=== PATIENT | female | born 1995 | race Caucasian/White ===

== ENCOUNTER 2017-05-15 14:06 | Inpatient (IN) ==
[2017-05-15] MEDS ORDERED: NS 1,000 ML IV ONE ×2 (14:30→19:13)
[2017-05-15] MEDS ORDERED: MOTRIN PO ONE (14:31)
[2017-05-15] MEDS ORDERED: MOTRIN ONE (14:32)
[2017-05-15 14:44] LABS: BASO% 0.2 % (0.0-0.8); EOS# 0.14 X1000 (0.0-0.7); HEMATOCRIT 42.3 % (37.0-47.0); HEMOGLOBIN 14.4 g/dL (12.0-16.0); IMM GRAN# 0.02 X1000 (0.0-0.04); IMM GRAN% 0.1 % (0.0-0.5); LYMPH# 1.15 X1000 (1.2-3.4); LYMPH% 7.9 % (20.5-51.1); MANUAL DIFF NEEDED? NO; MCH 28.9 PG (27-31); MCV 84.9 FL (81-99); MONO# 0.77 X1000 (0.11-0.59); MONO% 5.3 % (1.7-9.3); MPV 9.3 FL (7.4-10.4); NEUT% 85.5 % (42.2-75.2); PLT 331 X1000 (130-400); RBC 4.98 XMIL (4.2-5.4)
[2017-05-15 14:46] LABS: URINE CULTURE PL NEEDED? NO
[2017-05-15 14:57] LABS: AMYLASE 229 U/L (20-200)
[2017-05-15 14:59] LABS: AGAP 13; ALBUMIN 3.9 g/dL (3.5-5.0); ALKALINE PHOSPHATASE 77 U/L (32-104); BUN 8 mg/dL (8-22); CALCIUM 8.8 mg/dL (8.8-10.2); CHLORIDE 100 mmol/L (98-107); COSMO 272; GOT 15 U/L (10-30); GPT 21 U/L (10-36); POTASSIUM 3.4 mmol/L (3.5-5.1); SODIUM 137 mmol/L (136-145); TCO2 24 mmol/L (25-35); TOTAL PROTEIN 7.2 g/dL (6.3-8.3)
[2017-05-15 15:02] LABS: BILIRUBIN URINE NEGATIVE (NEGATIVE); BLOOD URINE NEGATIVE (NEGATIVE); GLUCOSE URINE NEGATIVE (NEGATIVE); LEUKOCYTES URINE TRACE (NEGATIVE); NITRITE URINE NEGATIVE (NEGATIVE); PH URINE 6.5; PROTEIN URINE NEGATIVE (NEGATIVE); SP GRAVITY URINE 1.015; UROBILINOGEN URINE NORMAL
[2017-05-15] MEDS ORDERED: MORPHINE IV ONE ×2 (15:03→16:56)
[2017-05-15] MEDS ORDERED: ZOFRAN IV ONE ×2 (15:03→16:56)
--- NOTE | 2017-05-15 15:07 | PROVIDER DOCUMENTATION ---
HPI-Abdominal Pain/GI Problem - General Chief Complaint: Abdominal Pain Stated Complaint: FEVER/VOMITING/BODYACHE Time Seen by Provider: 05/15/17 14:45 Source: patient, family Allergies/Adverse Reactions: Patient Allergies Allergy/AdvReac Type Severity Reaction Status Date / Time acetaminophen [From Lortab] Allergy ANAPHYLAXIS Verified 05/15/17 14:16 ceftriaxone [From Rocephin] Allergy RASH Verified 05/15/17 14:16 hydrocodone [From Lortab] Allergy ANAPHYLAXIS Verified 05/15/17 14:16 nitrofurantoin Allergy HIVES Verified 08/07/14 03:29 macrocrystalline * [From Macrodantin] Home Medications: Home Medication List Medication Instructions Recorded Confirmed Last Taken Type Bupropion [Wellbutrin] 75 mg PO BID 05/15/17 05/15/17 Unknown History Clonazepam [Klonopin] 0.5 mg PO BID PRN 05/15/17 05/15/17 Unknown History Loratadine [Claritin] 10 mg PO QHS 05/15/17 05/15/17 Unknown History Omeprazole 40 mg PO DAILY 05/15/17 Unknown History - History of Present Illness-ABD Nature of Presenting Problems: 21 year old WF presents with multiple comnplaints: abd pain, fever, NVD since Tuesday, getting worse. pt reports pain is constant, dull, worse with palpation, movement. denies taking any OTC meds for pain, nausea. pt c/o urinary frequency , urgency and burning for months, pt has been seen by her PMD multiple times for these issues. additional complaints: blood in her stool for 8 months. pt reports she has hemorrhoids and these are being monitored by GI. Abdominal Pain Onset Location: reports: RUQ, RLQ Pain Radiation: reports: no radiation Quality of Pain: reports: aching, burning, dull Severity in ED: reports: mild Onset/Duration: reports: 4 days ago Timing: reports: still present, constant, getting worse Exposure to sick contacts?: No Review of Systems - Adult - REVIEW OF SYSTEMS - ADULT Constitutional: reports: see HPI, chills, fever. denies: fatique Eyes: reports: no symptoms reported. denies: discharge, blurred vision, double vision Ears, Nose, Mouth & Throat: reports: no symptoms reported. denies: ear discharge, ear pain, nose pain, loose teeth, throat pain, throat swelling Cardiovascular: reports: no symptoms reported. denies: chest pain, palpitations , syncope Respiratory: reports: no symptoms reported. denies: chronic cough, cough, shortness of breath, wheezing Gastrointestinal: reports: see HPI, abdominal pain, constipation, diarrhea, nausea, poor appetite, rectal bleeding, vomiting. denies: hematemesis Genitourinary: reports: no symptoms reported. denies: dysuria, hematuria, urgency Musculoskeletal: reports: no symptoms reported. denies: bone pain, joint pain, joint swelling, neck pain Integumentary: reports: no symptoms reported. denies: hives, itching, skin sores/ulcer Neurological: reports: no symptoms reported Psychiatric: reports: no symptoms reported Endocrine: reports: no symptoms reported Hematologic/Lymphatic: reports: no symptoms reported Allergic/Immunologic: reports: no symptoms reported All Other Systems: Reviewed and Negative Past History - Adult - PAST MEDICAL HISTORY-ADULT Review of Records: reports: Old Records Reviewed, Nursing Assessment Review, Medications Reviewed, Social history reviewed & non-contributory. Major Childhood Illnesses: reports: denies history Cardiovascular: reports: denies history Respiratory: reports: denies history Gastrointestinal: reports: hemorrhoids, inflammatory bowel disease, IBS Obstetrical/Gynecological: reports: endometriosis, ovarian cysts Genitourinary: reports: chronic UTI's Musculoskeletal: reports: denies history Neurological: reports: denies history Endocrine/Immune: reports: denies history Other Conditions: reports: denies history - PRIOR SURGERIES/PROCEDURES Surgical/Procedure History: reports: other (surgery for endometriosis) - IMMUNIZATION STATUS Childhood Immunizations: See Nurse Assessment Flu Vaccine: See Nurse Assessment - FAMILY HISTORY Family History: reviewed, not pertinent - SOCIAL HISTORY Smoking: denies, non-smoker Substance Use: none/never Alcohol Use Frequency: never Physical Exam-General - PHYSICAL EXAM-ADULT Initial Vital Signs Reviewed: Yes - CONSTITUTIONAL General Appearance: appears well, alert, no apparent distress - EYES Eyes: pink conjunctivae. negative: sclera injected, scleral icterus - HEAD, EARS, NOSE, MOUTH & THROAT HENMT: normocephalic/atraumatic, normal ENT inspection, other (dry membranes). negative: moist mucous membranes - NECK Neck: non-tender, full range of motion, supple, normal inspection. negative: C- spine tenderness, limited range of motion, tender lateral, tender midline - RESPIRATORY Respiratory: chest non-tender, lungs clear, normal breath sounds, no pleuratic chest pain, no respiratory distress, no accessory muscle use. negative: respiratory distress, decreased breath sounds, accessory muscle use, crackles, rales, rhonchi, stridor, wheezing - CARDIOVASCULAR Cardiovascular: normal peripheral pulses, regular rate, rhythm - GASTROINTESTINAL (ABDOMEN) Abdominal Exam: soft, abnormal bowel sounds (hyperactive BS), tenderness, McBurney's point tenderness, Hardin's sign. negative: normal bowel sounds, non tender, distended, guarding, rigid, rebound, obturator sign, psoas, Rovsing's sign - LYMPHATIC Lymphatic: negative: cervical node tenderness - MUSCULOSKELETAL Back Exam: normal inspection, no vertebral tenderness, CVA tenderness (right). negative: no CVA tenderness Extremity: normal range of motion, non-tender, normal gait, normal inspection, no pedal edema, no calf tenderness, normal capillary refill. negative: deformity, erythema, swelling, tenderness Peripheral Pulses: radial (R): 3+, radial (L): 3+, dorsalis-pedis (R): 3+, dorsalis-pedis (L): 3+ - SKIN Integumentary: normal color, normal turgor, warm/dry. negative: pallor, petechiae, purpura, rash - NEUROLOGIC Neurologic: grossly normal, no motor/sensory deficits - PSYCHIATRIC Psych/Mental Status: normal mood/affect, normal thought content, normal thought process, oriented x 3 Progress - PLAN OF CARE/RESULTS Progress/Plan/Lab Results: Vital Signs - 8 hr 05/15/17 14:11 05/15/17 14:42 Temperature 100.7 F H Pulse Rate 120 H 121 H Respiratory Rate 20 18 Blood Pressure 145/70 127/088 O2 Sat by Pulse Oximetry 96 99 Bedside Urine ED: Urine Bedside Start: 05/15/17 14:37 Freq: ORDERED Status: Active Activity Type Activity Date Activity User E-Sign Co-Sign Detail Recorded Client Recorded Date Recorded By Document 05/15/17 14:40 [id number] 05/15/17 14:42 [id number] 05/15/17 14:40 Point of Care [Bedside Point of Care] -Lot # [id number] - Results Negative -Control Line Visible? Yes Laboratory Results - last 24 hr 10/01/17 10/01/17 10/01/17 14:30 14:30 14:30 WBC 14.59 H RBC 4.98 Hgb 14.4 Hct 42.3 MCV 84.9 MCH 28.9 MCHC 34.0 RDW Std Deviation 12.4 Plt Count 331 MPV 9.3 Immature Gran % (Auto) 0.1 Neut % (Auto) 85.5 H Lymph % (Auto) 7.9 L [place] % (Auto) 5.3 Eos % (Auto) 1.0 Baso % (Auto) 0.2 Immature Gran # (Auto) 0.02 Neut # (Auto) 12.48 H Lymph # (Auto) 1.15 L [place] # (Auto) 0.77 H Eos # (Auto) 0.14 Baso # (Auto) 0.03 Sodium 137 Potassium 3.4 L Chloride 100 Carbon Dioxide 24 L Anion Gap 13 BUN 8 Creatinine 0.7 Estimated GFR/1.73 m2 > 60 BUN/Creatinine Ratio 11 Glucose 90 Calculated Osmolality 272 Calcium 8.8 Total Bilirubin 0.40 AST 15 ALT 21 Alkaline Phosphatase 77 Total Protein 7.2 Albumin 3.9 Globulin 3.0 Albumin/Globulin Ratio 1.0 Amylase 229 H Lipase 821 H Urine pH Ur Specific [place] Urine Protein Urine Ketones Urine Blood Urine Nitrite Urine Bilirubin Urine Urobilinogen Urine WBC Urine Glucose 05/15/17 14:45 WBC RBC Hgb Hct MCV MCH MCHC RDW Std Deviation Plt Count MPV Immature Gran % (Auto) Neut % (Auto) Lymph % (Auto) [place] % (Auto) Eos % (Auto) Baso % (Auto) Immature Gran # (Auto) Neut # (Auto) Lymph # (Auto) [place] # (Auto) Eos # (Auto) Baso # (Auto) Sodium Potassium Chloride Carbon Dioxide Anion Gap BUN Creatinine Estimated GFR/1.73 m2 BUN/Creatinine Ratio Glucose Calculated Osmolality Calcium Total Bilirubin AST ALT Alkaline Phosphatase Total Protein Albumin Globulin Albumin/Globulin Ratio Amylase Lipase Urine pH 6.5 Ur Specific [place] 1.015 Urine Protein NEGATIVE Urine Ketones NEGATIVE Urine Blood NEGATIVE Urine Nitrite NEGATIVE Urine Bilirubin NEGATIVE Urine Urobilinogen NORMAL Urine WBC TRACE A Urine Glucose NEGATIVE Orders Category Date Time Status [ED: Urine Bedside] ORDERED Care 05/15/17 14:[address] ABDOMEN/PELVIS W/O CONTRAST [CT] Stat Exams 05/15/17 15:03 Ordered AMYLASE [CHEM] Stat Lab 05/15/17 14:30 Results CBC WITH ELECTRONIC DIFF [HEME] Stat Lab 05/15/17 14:30 Completed COMPREHENSIVE METABOLIC PANEL [CHEM] Stat Lab 05/15/17 14:30 Completed LIPASE [CHEM] Stat Lab 05/15/17 14:[address] W/POSS RFLX CULT [URINALYSIS] Stat Lab 05/15/17 14:45 Received 0.9% Sodium Chloride Inj [Ns] 1,000 ml Med 05/15/17 14:30 Active IV 999 mls/hr Ibuprofen [Motrin] Med 05/15/17 14:32 Discontinued 600 mg .ROUTE .STK-MED ONE Ibuprofen [Motrin] Med 05/15/17 14:31 Discontinued 600 mg PO NOW ONE Morphine Med 05/15/17 15:03 Once 4 mg IV NOW ONE Ondansetron [Zofran] Med 05/15/17 15:03 Once 4 mg IV NOW ONE Laboratory Tests 05/15/17 05/15/17 05/15/17 14:30 14:30 14:30 WBC 14.59 H RBC 4.98 Hgb 14.4 Hct 42.3 MCV 84.9 MCH 28.9 MCHC 34.0 RDW Std Deviation 12.4 Plt Count 331 MPV 9.3 Immature Gran % (Auto) 0.1 Neut % (Auto) 85.5 H Lymph % (Auto) 7.9 L [place] % (Auto) 5.3 Eos % (Auto) 1.0 Baso % (Auto) 0.2 Immature Gran # (Auto) 0.02 Neut # (Auto) 12.48 H Lymph # (Auto) 1.15 L [place] # (Auto) 0.77 H Eos # (Auto) 0.14 Baso # (Auto) 0.03 Sodium 137 Potassium 3.4 L Chloride 100 Carbon Dioxide 24 L Anion Gap 13 BUN 8 Creatinine 0.7 Estimated GFR/1.73 m2 > 60 BUN/Creatinine Ratio 11 Glucose 90 Calculated Osmolality 272 Calcium 8.8 Total Bilirubin 0.40 AST 15 ALT 21 Alkaline Phosphatase 77 Total Protein 7.2 Albumin 3.9 Globulin 3.0 Albumin/Globulin Ratio 1.0 Amylase 229 H Lipase 1461 H Urine Source Urine Color Urine Clarity Urine pH Ur Specific [place] Urine Protein Urine Ketones Urine Blood Urine Nitrite Urine Bilirubin Urine Urobilinogen Urine Microscopic RBC Urine WBC Urine Microscopic WBC Ur Epithelial Cells Urine Glucose 05/15/17 14:45 WBC RBC Hgb Hct MCV MCH MCHC RDW Std Deviation Plt Count MPV Immature Gran % (Auto) Neut % (Auto) Lymph % (Auto) [place] % (Auto) Eos % (Auto) Baso % (Auto) Immature Gran # (Auto) Neut # (Auto) Lymph # (Auto) [place] # (Auto) Eos # (Auto) Baso # (Auto) Sodium Potassium Chloride Carbon Dioxide Anion Gap BUN Creatinine Estimated GFR/1.73 m2 BUN/Creatinine Ratio Glucose Calculated Osmolality Calcium Total Bilirubin AST ALT Alkaline Phosphatase Total Protein Albumin Globulin Albumin/Globulin Ratio Amylase Lipase Urine Source CLEAN CATCH Urine Color YELLOW Urine Clarity CLEAR Urine pH 6.5 Ur Specific [place] 1.015 Urine Protein NEGATIVE Urine Ketones NEGATIVE Urine Blood NEGATIVE Urine Nitrite NEGATIVE Urine Bilirubin NEGATIVE Urine Urobilinogen NORMAL Urine Microscopic RBC <10 Urine WBC TRACE A Urine Microscopic WBC <10 Ur Epithelial Cells <10 Urine Glucose NEGATIVE Orders Category Date Time Status Admit - [facility] Routine AdmDCTranf 05/15/17 17:59 Ordered [ED: Urine Bedside] ORDERED Care 05/15/17 14:[address] ABDOMEN/PELVIS W/O CONTRAST [CT] Stat Exams 05/15/17 15:03 Completed US GB < RUQ (LIMITED) [US] Stat Exams 05/15/17 16:31 Completed AMYLASE [CHEM] Stat Lab 05/15/17 14:30 Completed CBC WITH ELECTRONIC DIFF [HEME] Stat Lab 05/15/17 14:30 Completed COMPREHENSIVE METABOLIC PANEL [CHEM] Stat Lab 05/15/17 14:30 Completed LIPASE [CHEM] Stat Lab 05/15/17 14:[address] W/POSS RFLX CULT [URINALYSIS] Stat Lab 05/15/17 14:45 Completed 0.9% Sodium Chloride Inj [Ns] 1,000 ml Med 05/15/17 14:30 Discontinued IV 999 mls/hr Ibuprofen [Motrin] Med 05/15/17 14:32 Discontinued 600 mg .ROUTE .STK-MED ONE Ibuprofen [Motrin] Med 05/15/17 14:31 Discontinued 600 mg PO NOW ONE Morphine Med 05/15/17 15:03 Discontinued 4 mg IV NOW ONE Morphine Med 05/15/17 16:56 Discontinued 4 mg IV NOW ONE Ondansetron [Zofran] Med 05/15/17 15:03 Discontinued 4 mg IV NOW ONE Ondansetron [Zofran] Med 05/15/17 16:56 Discontinued 4 mg IV NOW ONE Transfer/Admit Order [TRANSFER] Routine Transfer 05/15/17 17:59 Ordered Vital Signs - 24 hr 05/15/17 14:11 05/15/17 14:42 05/15/17 15:47 Temperature 100.7 F H 99.3 F Pulse Rate 120 H 121 H 104 H Respiratory Rate 20 18 19 Blood Pressure 145/70 127/088 136/082 O2 Sat by Pulse Oximetry 96 99 97 05/15/17 17:09 Temperature 98.3 F Pulse Rate 103 H Respiratory Rate 18 Blood Pressure O2 Sat by Pulse Oximetry 97 Result Diagrams: 05/15/17 14:30 05/15/17 14:30 - REASSESSMENT Reassessment #1 Time Reassessed: 17:57 Status: other (notified pt and family of lab, radiology findings and need for admission. pt and family verbalize understanding and agree.) - CT/MRI 1 CT Study: Abdomen, Pelvis Impression: Normal (per Dr. Little) - ULTRASOUND (By Radiology) 1 US Study: Gallbladder Impression: Normal (per Dr. Little) - CONSULTS/PCP/HOSPITALIST Notification #1 *Consult/PCP/Hospitalist*: Dr. Esquivel Time Discussed: 17:55 Reason/Comments: dx: pancreatitis. abd pain, NVD Consult Disposition: Admit Departure - Departure Date of Disposition Decision: 05/15/17 Time of Disposition Decision: 18:00 DIAGNOSIS: Pancreatitis Qualifiers: Chronicity: acute Pancreatitis type: unspecified pancreatitis type Acute pancreatitis complication: unspecified Qualified Code(s): K85.90 - Acute pancreatitis without necrosis or infection, unspecified Disposition: ADMITTED INPATIENT 09 Certified Medical Emergency: Emergent Condition: Stable Referrals and Follow-Ups: Jamal Salazar MD [Primary Care Provider] - - Critical Care Note This patient required my direct & personal management of CC.: No Attestation - Physician/ SARI Attestation Patient care was provided by Advanced Practice Provider:: Yes Advanced Practice Provider:: Vamshi Shanks Advanced Practice Provider documentation review:: The Mid-level provider documentation, treatment plan and medical decision making was reviewed by the physician who agrees with all treatment and medical decision making by the MLP. The physician spent face to face time with patient:: No Advanced Practice Provider documentation review:: Supervising physician onsite and consulted in the evaluation and care of this patient. The physician did not have a face to face encounter with the patient.
[2017-05-15 15:08] LABS: LIPASE 1461 U/L (13-60)
[2017-05-15 15:17] LABS: CLARITY CLEAR (CLEAR); COLOR YELLOW; URINE EPITHELIAL CELLS <10 /HPF (<10); URINE RBC <10 /HPF (<10); URINE SOURCE CLEAN CATCH; URINE WBC <10 /HPF (<10)
--- NOTE | 2017-05-15 16:14 | Diag Imaging Result Doc PS360 ---
EXAM: CT ABDOMEN/PELVIS W/O CONTRAST INDICATION: abd pain, NVD, fever TECHNIQUE: Dose reduction protocol was used. COMPARISON: None. FINDINGS: The gallbladder is distended but is unremarkable, otherwise. There is no pericholecystic inflammatory change. The liver, spleen, adrenal glands, pancreas, kidneys, urinary bladder, reproductive tract, appendix, and GI tract are essentially unremarkable. No focal inflammatory changes, free abdominal gas, or free fluid is appreciated. IMPRESSION: No evidence of acute pathology. Electronically signed by Ruben Little 05/15/2017 4:12 PM
--- NOTE | 2017-05-15 17:26 | Diag Imaging Result Doc PS360 ---
EXAM: US GB < RUQ (LIMITED) INDICATION: RUQ tenderness; elevated lipase COMPARISON: None. FINDINGS: The gallbladder appears normal with no stones, wall thickening, or pericholecystic fluid. The common bile duct is normal in diameter. Sonographic Hardin's sign was reported to be negative. The liver is grossly unremarkable. Portal venous flow is hepatopedal. The visualized pancreas is unremarkable. The portions of the aorta and IVC not obscured by bowel gas are grossly unremarkable. The right kidney is grossly unremarkable. IMPRESSION: Essentially unremarkable right upper quadrant abdominal ultrasound. Electronically signed by Ruben Little 05/15/2017 5:24 PM
[2017-05-15] MEDS ORDERED: ZOSYN 3.375 GM in NS 50 ML IV ONE (18:18)
[2017-05-15] MEDS ORDERED: KLONOPIN PO PRN (19:13)
[2017-05-15] MEDS ORDERED: TYLENOL PO PRN (19:13)
[2017-05-15] MEDS: MORPHINE IV PRN (20:09)
[2017-05-15] MEDS ORDERED: WELLBUTRIN PO SCH (21:00)
[2017-05-15] MEDS ORDERED: CLARITIN PO SCH (21:00)
[2017-05-16] MEDS: ZOSYN 3.375 GM in NS 50 ML IV SCH ×5 (00:15→23:55)
[2017-05-16] MEDS: ZOFRAN IV PRN ×3 (03:22→21:06)
[2017-05-16] MEDS: MORPHINE IV PRN ×3 (03:23→21:04)
[2017-05-16 05:59] LABS: HEMATOCRIT 36.5 % (37.0-47.0); MCH 28.2 PG (27-31); MCHC 32.9 g/dL (33-37); MCV 85.7 FL (81-99); MPV 9.4 FL (7.4-10.4); RBC 4.26 XMIL (4.2-5.4)
[2017-05-16 06:11] LABS: AGAP 10; ALBUMIN 3.1 g/dL (3.5-5.0); ALKALINE PHOSPHATASE 67 U/L (32-104); AMYLASE 99 U/L (20-200); BUN 5 mg/dL (8-22); CALCIUM 7.8 mg/dL (8.8-10.2); CHLORIDE 104 mmol/L (98-107); COSMO 269; GOT 12 U/L (10-30); GPT 16 U/L (10-36); LIPASE 180 U/L (13-60); POTASSIUM 3.4 mmol/L (3.5-5.1); SODIUM 136 mmol/L (136-145); TCO2 22 mmol/L (25-35); TOTAL PROTEIN 5.6 g/dL (6.3-8.3); TRIGLYCERIDES 76 mg/dL (35-135)
[2017-05-16] MEDS ORDERED: NS 1,000 ML IV SCH (08:31)
--- NOTE | 2017-05-16 09:52 | Diag Imaging Result Doc PS360 ---
EXAM: CHEST-2 VIEWS HISTORY: hypoxia TECHNIQUE: Two views COMPARISON: None. FINDINGS: The lungs are well expanded. The heart is not enlarged. The vessels are not distended. There are no infiltrates. No pleural effusions. IMPRESSION: No acute abnormality. Electronically signed by Rudi Solares 05/16/2017 9:50 AM
--- NOTE | 2017-05-16 16:08 | Diag Imaging Result Doc PS360 ---
EXAM: HIDA SCAN W/ EJECTION FRACTION HISTORY: pancreatitis TECHNIQUE: 4.5 mCi Choletec administered. COMPARISON: None. FINDINGS: There is prompt uptake of radiopharmaceutical within the liver. There is filling of the gallbladder by 15 minutes. Ensure was taken to determine the gallbladder ejection fraction. Although there is emptying into the small bowel, there is no measurable emptying from the gallbladder. IMPRESSION: Abnormal exam with a below normal gallbladder ejection fraction. Electronically signed by Rudi Solares 05/16/2017 4:06 PM
--- NOTE | 2017-05-16 17:33 | HISTORY AND PHYSICAL ---
CHIEF COMPLAINT: Abdominal pain, fever, vomiting for 3 days, with diarrhea the last 24 hours. HISTORY OF PRESENT ILLNESS: This is a 21-year-old female who presented to the emergency room complaining of abdominal pain, fever, nausea, vomiting and diarrhea since Tuesday. She did state that symptoms are increasing over the last 24 hours. She does complain of a constant and dull abdominal pain that increases with palpation and movement. She does state the pain is worse in the right upper and right lower quadrant. She denied any black or bloody vomitus. She was found have a white count of 14.59, with a lipase of 1461, and an amylase of 229. She was given IV hydration, along with Zofran, Zosyn, and admitted for further evaluation and treatment. PAST MEDICAL HISTORY: Headaches, hemorrhoids with occasional bleeding, irritable bowel syndrome, endometriosis, history of ovarian cyst. PAST SURGICAL HISTORY: Uterine ablation. SOCIAL HISTORY: She denies alcohol, tobacco, or illicit drug use. ALLERGIES: Wellbutrin, which causes a rash. Lortab, which causes anaphylaxis. Rocephin. which causes a rash. Macrodantin, which causes hives. HOME MEDICATIONS: Omeprazole 40 daily, Klonopin 0.5 b.i.d., Claritin 10 at bedtime, Wellbutrin 75 p.o. b.i.d. REVIEW OF SYSTEMS: A 14-point review of systems is discussed with the patient, with pertinent positives stated in HPI. She denied chest pain, palpitations, syncope, dizziness, cough, fever, chills, shortness of breath, PND, orthopnea, black or bloody vomitus, black stools. She does report some blood on her stools, chronic, with recurrent hemorrhoids. She denies any hematuria, dysuria, frequency, urgency. PHYSICAL EXAMINATION: GENERAL: This is a 21-year-old female who is sitting up in the bed, in no distress. VITAL SIGNS: Blood pressure is 128/70, with a heart rate of 90, respirations are 18, temperature is 98.8 degrees oral, with room air saturations of 99%. HEENT: Head is normocephalic, atraumatic. Pupils equal, round, react to light. EOMs are intact. Sclerae anicteric. Mucous membranes are dry. NECK: Supple, with trachea midline. CARDIOVASCULAR: Regular rate and rhythm. S1 and S2 appreciated. No rubs, murmurs, or gallops noted. PULMONARY: Breath sounds are clear, with no increased work of breathing noted. Chest does rise and fall symmetrically with respiration. GASTROINTESTINAL: Abdomen is soft. Tender to palpation in right upper quadrant, which is greater than right lower quadrant. Bowel sounds are positive. She is not distended. BACK: No CVAT. No spine tenderness. MUSCULOSKELETAL: Good range of motion of joints. EXTREMITIES: No clubbing, cyanosis, or edema. Calves are nontender. Pulses are palpable x4. SKIN: Warm and dry, with no rashes or lesions noted. NEUROLOGIC: She is alert and oriented x3. Her cranial nerves 2 through 12 grossly intact. DIAGNOSTICS: 1. WBC is 14.5, with hemoglobin 14.4, hematocrit 42.3 and platelets of 331,000. Sodium is 137, potassium 3.4, BUN 8, creatinine 0.7, glucose of 90, amylase is 229. Lipase is 1461. 2. CT of the abdomen and pelvis revealed no evidence of acute pathology. The gallbladder is distended, but unremarkable. There is no pericholecystic inflammatory change. The liver, spleen, adrenal glands, pancreas, kidneys, urinary bladder, reproductive tract, appendix and GI tract are essentially unremarkable. 3. Abdominal ultrasound revealed unremarkable right upper quadrant abdominal ultrasound. The gallbladder appearing normal, with no stones, wall thickening, or pericholecystic fluid. Common bile duct is normal in diameter. Sonographic Hardin's sign reported to be negative. Liver is grossly unremarkable. Portal venous flow had hepatopetal. Visualized pancreas is unremarkable. ASSESSMENT: 1. Pancreatitis, acute. 2. Vomiting. 3. Leukocytosis. 4. Irritable bowel syndrome, history of. PLAN: She will remain n.p.o. HIDA scan has been ordered for today. We will repeat labs today. We will identify her home medications, and continue as appropriate. We will continue to trend her vital signs. She will be placed on telemetry. We will give Zosyn q.6 hours, with gentle hydration. We will repeat her labs in the morning. Further treatments pending hospital course. Dictated by LUIS Everett for Jose Terry MD cc: LUIS Everett MD
[2017-05-16] MEDS ORDERED: PHENERGAN IV PRN ×2 (18:17→19:37)
[2017-05-16] MEDS ORDERED: SODIUM CHLORIDE 0.9% INJ PRN ×2 (18:17→19:37)
[2017-05-16] MEDS ORDERED: KLONOPIN PO PRN (19:36)
[2017-05-16] MEDS ORDERED: TYLENOL PO PRN (19:38)
--- NOTE | 2017-05-16 20:39 | PROGRESS NOTE ---
DATE: 05/16/2017 ADDENDUM: Patient seen and examined by myself, full note dictated by nurse practitioner. Patient is awake and alert. She is in no distress. She notes she does drink alcohol occasionally, but does not drink on any regular basis. States her pain is much better today, but she has had nothing to eat or drink recently. OBJECTIVE: The patient is awake and alert. Her vital signs are stable. Her abdomen is cloth dyeing range tender in the epigastric region, but only minimally. LABS: Her amylase and lipase both have dropped dramatically since admission. CT was negative. She does have a HIDA scan scheduled. Her WBCs have dropped from 14 to 5. We will continue Zyvox. Will check a HIDA scan. Further orders as needed. Discussed with patient causes and treatments of pancreatitis. cc: Jose Terry MD
[2017-05-16] MEDS: CLARITIN PO SCH (20:57)
[2017-05-16] MEDS: NS 1,000 ML IV SCH (20:57)
[2017-05-17] MEDS: ZOSYN 3.375 GM in NS 50 ML IV SCH ×4 (05:07→23:45)
--- NOTE | 2017-05-17 07:41 | CONSULTATION ---
DATE OF CONSULTATION: 05/17/2017 REQUESTING PHYSICIAN: The hospitalist service concerning possible biliary pancreatitis. HISTORY OF PRESENT ILLNESS: A 21-year-old female presented to the emergency department on 05/15/2017 with complaints of abdominal pain in the epigastric. She also reported nausea, vomiting, and diarrhea. This has been going on several days prior to presentation. She had previous episodes like this in the past but never to this point. She denies any kind of dark tarry stool. She was evaluated in the emergency department and had a normal CT scan although her lipase was significantly elevated. She underwent ultrasound that showed no significant pathology and no visualized stones. She underwent a HIDA scan that showed essentially chronic cholecystitis with no appreciable ejection fraction noted. Her lipase and amylase have improved. Her clinical status improved. She was transferred over to [facility] for surgical opinion. PAST MEDICAL HISTORY: 1. History of headaches. 2. History of hemorrhoids. 3. Irritable bowel syndrome. 4. Endometriosis. 5. History of ovarian cyst. PAST SURGICAL HISTORY: Includes uterine ablation. SOCIAL HISTORY: Denies alcohol, tobacco or illicit drugs. ALLERGIES: 1. Lortab. 2. Rocephin. 3. Macrodantin. HOME MEDICATIONS: 1. Omeprazole. 2. Klonopin. 3. Claritin. 4. Wellbutrin. FAMILY HISTORY: Reviewed with patient, noncontributory. REVIEW OF SYSTEMS: A full 10 point review of systems obtained, negative as specified in HPI. PHYSICAL EXAMINATION: Vital Signs: Patient is currently afebrile. Her vital signs are stable. General: No acute distress. Resting comfortably in bed. Well-nourished, well-developed female looks stated age. HEENT: Normocephalic, atraumatic. Pupils equal, round, reactive to light. Mucous membranes moist. Oropharynx benign. Neck: Supple. Trachea midline. Cardiovascular: Regular rate and rhythm. Lungs: Grossly clear. Abdomen: Soft. Some tenderness to palpation right upper quadrant epigastric. No peritoneal signs. Extremities: Moves all extremities. Skin: No signs of jaundice. Vascular: All extremities perfused. LABORATORY: Reviewed from yesterday. White blood cell count is 9; it was previously 14. Amylase and lipase are trending down. C-reactive protein is 90. Bilirubin is normal. AST, ALT and alkaline phosphatase normal. His lipase has gone from 14, 61, to 180. Amylase has gone from 229 to 99. Imaging reviewed and noted above. ASSESSMENT AND PLAN: A 21-year-old female with pancreatitis. Pancreatitis. At this time, there is potential for biliary pancreatitis given her abnormal function test and a HIDA scan. Although she has no stones on ultrasound, she does not have a cholestatic pattern on labs. Given the fact that she has an abnormal HIDA scan we will plan on cholecystectomy. We will do a cholangiogram at that time to see if other etiology exists. She does have an elevated C-reactive protein, so if this is essentially normal may need to consider other causes of pancreatitis. She does not seem to consume alcohol to make that call, but we will follow up with the results from the surgery. cc: Bret Donnelly MD
[2017-05-17] MEDS: ZOFRAN IV PRN ×2 (10:09→18:50)
[2017-05-17] MEDS: MORPHINE IV PRN ×3 (10:10→21:52)
[2017-05-17] MEDS: NS 1,000 ML IV SCH ×2 (10:16→21:52)
--- NOTE | 2017-05-17 16:01 | PROGRESS NOTE ---
DATE: 05/17/2017 SUBJECTIVE: I was contacted by the hospitalist service this morning stating that my patient had been transferred to [facility] from [place] yesterday. They had not included her on my list but apparently that occurred fairly late yesterday afternoon. The patient was admitted to [facility] with acute pancreatitis. Subsequent workup showed a normal ultrasound but she had a 0% ejection fraction on the HIDA scan. Dr. Donnelly has been consulted and they are proceeding with cholecystectomy sometime today or tomorrow morning. OBJECTIVE: Vital Signs: 98.2, 77, 16, 130/59. General: She is a well-developed white female, in no acute distress. She is lying in bed with her fiance. She has no complaints. She is not having any respiratory distress. She has no abdominal pain. LABORATORIES: White cell count yesterday was 9.7. Her potassium was slightly low at 3.4. Lipase was down to 180 from 1,461. Amylase was also down. ASSESSMENT AND PLAN: The patient's acute pancreatitis and likely acalculous cholecystitis. She is scheduled for surgery this afternoon or tomorrow morning per Dr. Donnelly. We will continue to watch the patient's lab values, advance diet as appropriate, and move towards discharge at the appropriate time. cc: Jamal Salazar MD
[2017-05-17] MEDS: CLARITIN PO SCH (21:52)
[2017-05-18] MEDS: ZOSYN 3.375 GM in NS 50 ML IV SCH ×2 (05:35→12:02)
--- NOTE | 2017-05-18 06:15 | PROGRESS NOTE ---
DATE: 05/18/2017 SUBJECTIVE: Patient doing okay. No major issues. OBJECTIVE: Vital Signs: Patient is currently afebrile. Her vital signs have been stable. General: No acute distress. HEENT: Normocephalic, atraumatic. Pupils equal, round, react to light. Mucous membranes moist. Oropharynx benign. Neck: Supple. Trachea midline. Cardiovascular: Regular rate and rhythm. Lungs: Clear. Abdomen: Soft. Less tender compared to previous days. No peritoneal signs. Extremities: Moves all extremities. Neurologic: Grossly intact. Skin: No signs of jaundice. Vascular: All extremities perfused. LABORATORY STUDIES: None this morning. ASSESSMENT AND PLAN: A 21-year-old female with pancreatitis, likely biliary. Pancreatitis, likely biliary. At this time, we will plan on laparoscopic cholecystectomy today with cholangiogram. We will see what her common bile duct looks like, make further recommendations after the surgery. Discussed with the patient yesterday the risks, benefits, alternatives of the procedure. All questions were answered. cc: MD Jamal Orlando MD
[2017-05-18] MEDS ORDERED: LR 1,000 ML ONE ×2 (07:50→08:07)
[2017-05-18] MEDS ORDERED: REGLAN ONE (08:01)
[2017-05-18] MEDS ORDERED: PEPCID ONE (08:01)
[2017-05-18] MEDS ORDERED: XYLOCAINE-MPF 1%/EPI 1:200,000 ONE (08:06)
[2017-05-18] MEDS ORDERED: SODIUM CHLORIDE 0.9% ONE (08:06)
[2017-05-18] MEDS ORDERED: MARCAINE 0.25% PF ONE (08:21)
[2017-05-18] MEDS ORDERED: DIPRIVAN 1% ONE (08:23)
[2017-05-18] MEDS ORDERED: XYLOCAINE-MPF 2% ONE (08:38)
[2017-05-18] MEDS ORDERED: DECADRON ONE (08:38)
[2017-05-18] MEDS ORDERED: QUELICIN (DOSE) ONE (08:38)
[2017-05-18] MEDS ORDERED: ZOFRAN ONE (08:38)
[2017-05-18] MEDS ORDERED: ZEMURON ONE (08:38)
[2017-05-18] MEDS ORDERED: TORADOL ONE (08:38)
[2017-05-18] MEDS ORDERED: FENTANYL ONE (08:42)
--- NOTE | 2017-05-18 09:00 | PROGRESS NOTE ---
DATE: 05/18/2017 The patient had already been taken to surgery waiting at the time of my arrival. I spoke with the family and reviewed all the information on the chart including organizational effectiveness consultant notes and vital signs. I have nothing to add at the present time. We will resumed care postoperatively and accommodate whatever needs are apparent at that time. cc: Jamal Salazar MD
[2017-05-18] MEDS ORDERED: ROBINUL ONE ×2 (09:20→09:39)
[2017-05-18] MEDS ORDERED: NEOSTIGMINE ONE (09:21)
--- NOTE | 2017-05-18 09:54 | OPERATIVE NOTE ---
PROCEDURE DATE: 05/18/2017 PREOPERATIVE DIAGNOSIS: Biliary pancreatitis. POSTOPERATIVE DIAGNOSES: 1. Biliary pancreatitis. 2. Cholelithiasis. PROCEDURE PERFORMED: Laparoscopic cholecystectomy. SURGEON: Bret Donnelly MD. CASE CHECKER: None. ANESTHESIA: General endotracheal. INTRAOPERATIVE FINDINGS: Cystic duct was too small to do a cholangiogram. ESTIMATED BLOOD LOSS: 10 mL. SPECIMENS REMOVED: Gallbladder and its contents. BRIEF HISTORY: The patient is a 21-year-old, female presenting with biliary pancreatitis. She resolved clinically. It was felt that the patient would benefit from a cholecystectomy. The risks, benefits, and alternatives were discussed. All questions were answered. DESCRIPTION OF PROCEDURE: After informed consent was obtained, the patient was brought to operative theatre, transferred to operating table, and placed in the supine position. General endotracheal anesthesia was then performed without complication. A formal time-out was then performed, confirming patient, date, and procedure. All were in agreement. At that time, attention was given to the abdomen. An infraumbilical incision was made through which, using an Optiview technique, we were able to insert an 11 mm trocar and connected it to insufflation. Pneumoperitoneum was achieved. Under direct visualization, placed 3 more trocars, all 5 mm, 1 in the subxiphoid 2 in the right upper quadrant. Using these, the gallbladder was identified and retracted cephalad. We were able to dissect out the cystic duct and the cystic artery. We placed a clip on the cystic duct on the gallbladder side and made a ductotomy. We noticed that the cystic duct was too small to accommodate the cholangiogram catheter, although we attempted but we were unsuccessful in shooting the cholangiogram. We then doubly clipped and ligated the cystic duct and cystic artery, and then dissected the gallbladder off the gallbladder fossa and brought it out through the infraumbilical incision. We then irrigated out the abdomen copiously. Reviewed the gallbladder fossa. There was no active bleeding. No drainage of bile. The clips were in good position. We closed the infraumbilical incision with 0 Vicryl on a Reggie-Joan device. We removed all trocars and disconnected the insufflation. Pneumoperitoneum was released. We then closed all skin incisions with 4-0 Monocryl. The patient tolerated procedure well and was transferred back to the recovery room in stable condition. cc: MD Jamal Orlando MD
[2017-05-18] MEDS: DILAUDID ONE ×4 (10:20→10:45)
[2017-05-18] MEDS ORDERED: ULTRAM PO PRN (11:07)
[2017-05-18] MEDS: MORPHINE IV PRN (13:04)
[2017-05-18] MEDS: ZOFRAN IV PRN (13:05)
[2017-05-18] MEDS: NS 1,000 ML IV SCH (14:18)
[2017-05-18 15:56] VITALS: BP 123/70
[2017-05-18] MEDS ORDERED: PERIDEX MT SCH (21:00)
[2017-05-19] MEDS ORDERED: PRILOSEC PO SCH (07:00)
--- NOTE | 2017-05-19 09:42 | DISCHARGE SUMMARY ---
ADMISSION DATE: 05/15/2017 DISCHARGE DATE: 05/18/2017 DISCHARGE DIAGNOSES: 1. Pancreatitis. 2. Acalculous cholecystitis. OPERATIVE PROCEDURES: Laparoscopic cholecystectomy. CONSULTATIONS: Bret Donnelly MD. HOSPITAL COURSE: This 21-year-old white female was admitted for abdominal pain, nausea, vomiting at [facility]. She was transferred to [facility]. A HIDA scan showed 0% ejection fraction. Dr. Donnelly was consulted. The patient was initially mistakenly placed on the hospitalist service but was transferred to my care after she was transferred to [facility]. Dr. Donnelly felt that removal of the gallbladder would be the appropriate measure and performed that procedure on the 4th. The patient recovered from that very well and very quickly. I received a call in the afternoon after the patient was postop and I was told that Dr. Donnelly had approved her for discharge if it was okay with me and I also approved discharge and the nurse took a telephone order for discharge. Dr. Donnelly had written for medications and had arranged for follow up. Patient and family as always are aware that they can call me with any difficulty. cc: Jamal Salazar MD
== END 2017-05-18 17:52 | disposition home or self-care (01) ==
LOC: P.ED 14:06 → SUATTDRO 14:07 → P.MEDSURG 14:07 → 4N 05-16 19:09
PROVIDERS: ADMIT Internal Medicine; ATTEND Internal Medicine